=== PATIENT | male | born 1995 | race Caucasian/White ===

== ENCOUNTER 2018-01-20 13:08 | Emergency (ER) | payer BC ==
[~2018-01-20] VITALS: Ht 185.4 cm; Wt 83.5 kg
[2018-01-20] MEDS ORDERED: Percocet 5-3251 EACH PO (13:36)
[2018-01-20] MEDS ORDERED: CYCL10 PO (13:36)
[2018-01-20] MEDS ORDERED: NAPR550 PO (13:36)
== END 2018-01-20 14:04 | disposition home or self-care (01) ==
LOC: ER 13:08
DX: M62.830 Muscle spasm of back (principal)
CPT/HCPCS: 96372; 99283; J1885; J3010

== ENCOUNTER 2022-11-19 17:09 | Inpatient (IN) | payer OTHER ==
[~2022-11-19] VITALS: Ht 182.9 cm; Wt 83.9 kg
[~2022-11-19 17:09] MED LIST: CYCL10 PO; NAPR550 PO; Percocet 5-3251 EACH PO
[2022-11-19 18:18] LABS: BASOPHILS ABSOLUTE AUTO 0.03 K/mm3 (0.00-0.23); BASOPHILS PERCENT AUTO 0 % (0-2); EOSINOPHILS ABSOLUTE AUTO 0.07 K/mm3 (0.00-0.68); EOSINOPHILS PERCENT AUTO 1 % (0-6); Hematocrit 39.5 % (37.0-53.0); Hemoglobin 13.6 g/dL (13.5-17.5); IMMATURE GRAN ABSOLUTE AUTO 0.06 K/mm3 (0.00-0.10); IMMATURE GRAN PERCENT AUTO 1 % (0-1); LYMPHOCYTES ABSOLUTE AUTO 1.58 K/mm3 (0.84-5.20); LYMPHOCYTES PERCENT AUTO 14 % (21-46); MONOCYTES ABSOLUTE AUTO 0.62 K/mm3 (0.16-1.47); MONOCYTES PERCENT AUTO 6 % (4-13); Mean Corpuscular HGB 30.7 pg (26.0-34.0); Mean Corpuscular HGB Conc 34.4 g/dL (31.5-36.5); Mean Corpuscular Volume 89 fL (80-100); Mean Platelet Volume 12.1 fL (9.1-12.4); NEUTROPHILS ABSOLUTE AUTO 8.65 K/mm3 (1.96-9.15); NEUTROPHILS PERCENT AUTO 79 % (41-73); Platelet Count 177 K/mm3 (150-400); RDW Coefficient Variation 11.9 % (11.7-14.2); RDW Standard Deviation 38.8 fL (35.1-46.3); Red Blood Cell Count 4.43 M/mm3 (4.30-5.90); White Blood Cell Count 11.01 K/mm3 (4.00-11.30)
[2022-11-19 18:52] LABS: Albumin, Blood 3.8 g/dL (3.4-5.0); Albumin/Globulin Ratio 1.4 (0.8-1.8); Bilirubin, Total 0.6 mg/dL (0.1-1.0); Bun/Creatinine Ratio 17.3 (12.0-20.0); Calcium, Blood 8.7 mg/dL (8.5-10.1); Creatinine, Blood 1.04 mg/dL (0.60-1.20); Globulin, Blood 2.8 g/dL (2.2-4.0); Potassium, Blood 3.7 mmol/L (3.5-5.5); Total Protein, Blood 6.6 g/dL (6.4-8.2)
--- NOTE | 2022-11-19 21:00 | NUR ---
PT NEW ADMIT FROM ER. PT A/O, LLE IN SPLINT, CAP REFILL WNL, PT REP MILD NUMBNESS TO TIPS OF TOES. PT PAINFUL W/TX FROM GURNEY TO BED, LLE ELEVATED ON PILLOWS, PT REP PAIN KYREE AFTER SETTLED INTO BED. PT ORIENTED TO ROOM/CALL LIGHT AND TX PLAN.
[2022-11-19 21:10] VITALS: BP 114/62
[2022-11-20] VITALS (22 sets, daily range): BP systolic 13–156; BP diastolic 53–84
--- NOTE | 2022-11-20 06:40 | NUR ---
PT VSS T/O NIGHT. SPLINT TO LLE IN PLACE, LLE ELEVATED, CAP REFILL WNL. PAIN MGD PER EMAR W/REP RELIEF. PT ATE DINNER BROUGHT IN BY HAS BEEN NPO POST MIDNIGHT. PLAN FOR SURGERY TODAY.
--- NOTE | 2022-11-20 14:21 | NUR ---
PT HAS 20G IV IN RIGHT AC THAT FLUSHES WELL AND FLOWS TO GRAVITY.
--- NOTE | 2022-11-20 18:15 | NUR ---
SHIFT SUMMARY PT TRANSPORTED TO THE OR FOR TIBIA PINNING SURGERY AT 1200. PT HAD SPLINT TO LLE. LLE ELEVATED WITH PILLOW. PT COMPLAINS OF PAIN, MEDICATED PER EMAR. VOIDING WELL. IN THE ROOM WITH PT.
--- NOTE | 2022-11-20 22:30 | NUR ---
PT ARRIVED BACK TO ROOM 215 FROM PACU RECOVERY. PT A/O, STILL SOMEWAHT GROGGY. VSS, SATS >90% ON 2LO2 NC. SPLING TO LLE CDI, PEDAL PULSE AND CAP REFILL WNL, PT REP MILD NUMBNESS TO TOP LEFT OF TOES AND FOOT. PT C/O SIGNIFICANT NUMBNESS/WEAKNESS, SHARP PINS/NEEDLES FEELING TO BOTH HANDS. RADIAL PULSE AND CAP REFILL WNL, HANDS WARM/PINK. BUE PHYSICIAN OFFICE NURSE WEAK, W/UNCOORDINATED MVMTS. PT REP FEELING ANXIOUS ABOUT SITUATION. PT REP SENSATION SAME SINCE AWAKING FROM ANESTHESIA. DR BRUCE UPDATED, NO NEW ORDERS. PLAN TO MONITOR FOR CHANGES/CONCERNS.
[2022-11-21 04:06] VITALS: BP 113/59
[2022-11-21 07:46] VITALS: BP 110/64
--- NOTE | 2022-11-21 07:50 | NUR ---
POD 1 S/P LEFT TIB/FIB ORIF. PT VSS T/O NIGHT. DRESSING CDI. LEFT FOOT SLIGHTLY MORE SWOLLEN THIS AM, CAP REFILL WNL. PT REP MILD NUMBNESS TO LEFT FOOT. PT CONT TO C/O N/T TO HANDS. 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 PAIN MGD W/ROLL FORGER, NEW ORDER FOR PO PAIN MEDS REC THIS AM. PT KYREE PO, IS VOIDING URINE W/O DIFFICULTY. DR BRUCE UPDATED THIS AM. PLAN TO MOBILIZE W/PT AND AWAIT DC PLANNING.
--- NOTE | 2022-11-21 08:57 | NUR ---
11/21/22 0857 Dixie Duval VERIFICATIONS: EDIT CHART.
--- NOTE | 2022-11-21 14:07 | NUR ---
Pt. is awake in bed and welcomes my visit. Spouse and family members are present. Pt. is pleasant, and was able to articulate his prognosis clearly. Listen with empathy and establish rapport. Pt. displays evidence of being fully engaged with whatever his recovery requires. Pt. is a man of tuyet so matters of tuyet and belief are considered. Pts. family is very supportive. Prayed with Pt. and family. All verbalized gratitude for the spiritual care visit.
[2022-11-21 15:38] VITALS: BP 105/61
--- NOTE | 2022-11-21 17:27 | NUR ---
SHIFT SUMMARY POD 1 ORIF TIB/FIB PT VERY PAINFUL THIS AM, TRANSITIONED TO PO PAIN MEDICINE AND PT REPORTS SIGNIFICANT IMPROVEMENT DURING SHIFT. NUMBNESS TO BILATERAL HANDS IMPROVED T/O SHIFT. L HAND IS CLOSE TO BASELINE WITH STRENGTH AND MOBILITY. R HAND REMAINS WEAK. PT WORKED WELL WITH THERAPY, ABLE TO AMBULATE TO THE HALLWAY WITH FWW. MAINTAINS NWB STATUS WELL. TOLERATING PO WELL, NO NAUSEA. PLAN IS TO DISCHARGE TOMORROW. SCRIPT SENT WITH TO PICKUP AT THIS TIME. PT HAS WALKING BOOT.
[2022-11-21 20:37] VITALS: BP 118/58
[2022-11-22 05:15] VITALS: BP 104/54
--- NOTE | 2022-11-22 06:40 | NUR ---
POD 2 S/P LLE ORIF. DRESSING CDI. LLE ELEVATED IN BED, FOOT SWELLING SLIGHTLY IMPROVED THIS AM; PT CONT TO C/O MILD NUMBNESS, CAP REFILL WNL. NUMBNESS IN LUE RESOLVED AND RUE CONT TO IMPROVE PER PT. PT DID STRUGGLE W/PAIN MGMT, MED PER EMAR, W/PRINT LINE INSPECTOR FOR BREAKTHROUGH PAIN. PLAN TO MOBILIZE W/PT AND D/C HOME.
--- NOTE | 2022-11-22 10:14 | NUR ---
DR. BRUCE IN ROOM AT ABOUT 0830. PLAN IS FOR DISCHARGE AFTER THERAPY. PT AWARE
[2022-11-22] MEDS ORDERED: Percocet 5-3251 EACH PO (10:44)
[2022-11-22 11:08] VITALS: BP 108/58
--- NOTE | 2022-11-22 11:44 | NUR ---
DISCHARGE: PACKET PRINTED AND PT EDUCATED. IV DC'D BY LATHE SET UP PERSONJOSHUA SANDOVAL. PT GIVEN AQUACEL DRESSINGS AND HAS OTHRO BOOT ON. PT REPORTS HAS CRUTCHES AT HOME AND ALREADY FILLED PERCOCET SCRIPT.
--- NOTE | 2022-11-22 12:35 | NUR ---
RACING BOARD MARKER WASTE 2.5 ML VERIFIED WITH JOSHUA AGOSTO.
== END 2022-11-22 12:50 | disposition home or self-care (01) | DRG 494 ==
LOC: ER 17:09 → SURS 19:42
PROVIDERS: Physician Assistant; ADMIT Orthopaedic Surgery
PROC: 0QSH04Z Reposition Left Tibia with Internal Fixation Device, Open Approach (ICD-10-PCS; principal; 2022-11-20 15:00)
DX: S82.302A Unspecified fracture of lower end of left tibia, initial encounter for closed fracture (principal); S82.832A Other fracture of upper and lower end of left fibula, initial encounter for closed fracture; Z79.899 Other long term (current) drug therapy; Z79.891 Long term (current) use of opiate analgesic; V19.9XXA Pedal cyclist (driver) (passenger) injured in unspecified traffic accident, initial encounter
CPT/HCPCS: 29505; 73590; 80053; 85025; 93005; 93010; 96374-59; 96375-59; 96376-59; 97110; 97116; 97161; 97165; 97530; 97535; 99284-25; A9270; C1713; C1769; J0690; J1100; J1170; J1885; J2270; J2405; J2704; J3010; J7030; J7120